=== PATIENT | female | born 1955 | race Caucasian/White ===

== ENCOUNTER 2024-01-29 12:49 | Observation (INO) ==
[2024-01-29 13:18] LABS: ABS Basophils 0.1 10^3/uL (0.0-0.1); ABS Eosinophils 0.1 10^3/uL (0.0-0.5); ABS Lymphocytes 2.7 10^3/uL (1.0-4.8); ABS Monocytes 0.7 10^3/uL (0.0-0.9); ABS Neutrophils 5.9 10^3/uL (1.5-7.6); Eosinophil % 1.1 %; Hematocrit 47.9 % (35-45); Lymphocyte % 28.1 %; Mean Corpuscular Hemoglobin 28.4 pg (27-33); Mean Corpuscular Hgb Conc 33.4 g/dL (31-36); Mean Corpuscular Volume 85.1 fL (80-97); Mean Platelet Volume 8.8 fL (7.5-11.2); Platelet Count 302 10^3/uL (150-450); Red Blood Count 5.63 10^6/uL (3.63-4.92); Red Cell Distribution Width 14.9 % (12-17); White Blood Count 9.5 10^3/uL (3.8-11.8)
[2024-01-29 13:28] LABS: INR 0.93 (0.85-1.14)
[2024-01-29 13:37] LABS: Albumin 4.3 g/dL (3.2-5.2); Albumin/Globulin Ratio 1.7 (1-3); Calcium 9.6 mg/dL (8.6-10.3); Creatinine, Serum 0.8 mg/dL (0.51-0.95); Globulin 2.6 g/dL (2-4); Total Bilirubin 1.9 mg/dL (0.2-1.0); Total Protein 6.9 g/dL (6.4-8.9); eGFR CKD-EPI 79.2 (>60)
[2024-01-29 14:55] LABS: High Sensitivity Troponin 1 Hr 86 pg/mL (<15)
[2024-01-29] MEDS: Iohexol 350 (CONTRAST) 500 ML MDV IV ONE (14:56)
[2024-01-29] MEDS: Aspirin EC 325 mg TAB.EC PO ONE (16:17)
[2024-01-29] MEDS ORDERED: Sulfur Hexaflouride MICROSPHR 25 MG VIAL IV PRN (18:19)
[2024-01-30 06:48] LABS: Anion Gap 10 mmol/L (2-16); Blood Urea Nitrogen 19 mg/dL (6-24); CO2 Carbon Dioxide 26 mmol/L (22-32); Calcium 9.5 mg/dL (8.6-10.3); Chloride 100 mmol/L (101-111); Creatinine, Serum 0.85 mg/dL (0.51-0.95); Glucose 122 mg/dL (70-100); Sodium 136 mmol/L (135-145); eGFR CKD-EPI 73.7 (>60)
[2024-01-30] MEDS: Aspirin EC 81 mg TAB.EC (enteric coated) PO SCH (08:11)
[2024-01-30 08:36] LABS: Potassium Redraw 3.3 mmol/L (3.5-5.0)
[2024-01-30] MEDS: Potassium Chloride LIQUID 20 MEQ/15 ML LIQUID PO ONE (16:26)
[2024-01-30 18:05] VITALS: BP 139/79
== END 2024-01-30 17:32 | disposition home or self-care (01) ==
LOC: ED 12:49 → EDHOLD 12:49
PROVIDERS: ADMIT Internal Medicine Hematology & Oncology; ATTEND Internal Medicine Hematology & Oncology

== ENCOUNTER 2024-05-08 08:24 | Inpatient (IN) ==
[2024-05-08] MEDS: Lactated Ringers 1000 ml BAG IV.FLUID IV ONE (08:58)
[2024-05-08 09:11] LABS: ABS Basophils 0.1 10^3/uL (0.0-0.1); ABS Eosinophils 0.1 10^3/uL (0.0-0.5); ABS Lymphocytes 2.1 10^3/uL (1.0-4.8); ABS Monocytes 0.6 10^3/uL (0.0-0.9); ABS Neutrophils 6.5 10^3/uL (1.5-7.6); Eosinophil % 1.4 %; Hematocrit 45.7 % (35-45); Hemoglobin 15.7 g/dL (11.5-14.3); Lymphocyte % 22.7 %; Mean Corpuscular Hemoglobin 29.2 pg (27-33); Mean Corpuscular Hgb Conc 34.3 g/dL (31-36); Mean Corpuscular Volume 85.1 fL (80-97); Mean Platelet Volume 8.5 fL (7.5-11.2); Platelet Count 321 10^3/uL (150-450); Red Blood Count 5.37 10^6/uL (3.63-4.92); Red Cell Distribution Width 13.5 % (12-17); White Blood Count 9.4 10^3/uL (3.8-11.8)
[2024-05-08 09:23] LABS: INR 1.39 (0.85-1.14)
[2024-05-08 09:33] LABS: Albumin 4.2 g/dL (3.2-5.2); Albumin/Globulin Ratio 1.7 (1-3); Calcium 9.3 mg/dL (8.6-10.3); Creatinine, Serum 1.01 mg/dL (0.51-0.95); Globulin 2.5 g/dL (2-4); Total Bilirubin 1.6 mg/dL (0.2-1.0); Total Protein 6.7 g/dL (6.4-8.9); eGFR CKD-EPI 59.9 (>60)
[2024-05-08 10:34] LABS: High Sensitivity Troponin 1 Hr 20 pg/mL (<15)
[2024-05-08] MEDS ORDERED: Sulfur Hexaflouride MICROSPHR 25 MG VIAL IV PRN (11:08)
[2024-05-08] MEDS: Etomidate 20 mg/10 ml 2 MG/ML 10 ml VIAL IV ONE (11:29)
[2024-05-08] MEDS: Ondansetron 4 mg VIAL 2 MG/ML 2 ml VIAL IV ONE (11:40)
[2024-05-08 15:14] LABS: Magnesium 2.1 mg/dL (1.9-2.7)
[2024-05-08] MEDS: Lactated Ringers 1000 ml BAG 1,000 ML IV SCH (17:21)
[2024-05-09] MEDS: Nystatin TOP POWDER 15 GM BTL TOPICAL SCH (05:26)
[2024-05-09 06:34] LABS: ABS Basophils 0.1 10^3/uL (0.0-0.1); ABS Eosinophils 0.2 10^3/uL (0.0-0.5); ABS Lymphocytes 2.2 10^3/uL (1.0-4.8); ABS Monocytes 0.6 10^3/uL (0.0-0.9); ABS Neutrophils 5.8 10^3/uL (1.5-7.6); Eosinophil % 1.9 %; Hematocrit 39.7 % (35-45); Hemoglobin 13.7 g/dL (11.5-14.3); Lymphocyte % 25.1 %; Mean Corpuscular Hemoglobin 29.7 pg (27-33); Mean Corpuscular Hgb Conc 34.5 g/dL (31-36); Mean Corpuscular Volume 86.1 fL (80-97); Mean Platelet Volume 8.8 fL (7.5-11.2); Nucleated Red Blood Cells % 0.1 %/100WBC (0.0-0.8); Platelet Count 277 10^3/uL (150-450); Red Blood Count 4.62 10^6/uL (3.63-4.92); Red Cell Distribution Width 13.8 % (12-17); White Blood Count 8.8 10^3/uL (3.8-11.8)
[2024-05-09 06:54] LABS: Albumin 3.7 g/dL (3.2-5.2); Albumin/Globulin Ratio 1.8 (1-3); Creatinine, Serum 0.79 mg/dL (0.51-0.95); Direct Bilirubin 0.3 mg/dL (0.03-0.18); Globulin 2.1 g/dL (2-4); Potassium 4.3 mmol/L (3.5-5.0); Total Bilirubin 2.6 mg/dL (0.2-1.0); Total Protein 5.8 g/dL (6.4-8.9); eGFR CKD-EPI 80.4 (>60)
[2024-05-10 22:11] VITALS: BP 128/71
== END 2024-05-11 00:48 | disposition home or self-care (01) | DRG 310 ==
LOC: ED 08:24 → EDHOLD 08:24 → SUATTDRO 13:44 → MEDTELE 14:51 → SUATTDRO 05-09 12:00
PROVIDERS: ADMIT Hospitalist; ATTEND Student in an Organized Health Care Education/Training Program